=== PATIENT | male | born 1975 | race Hispanic/Latino ===

== ENCOUNTER 2016-11-18 16:07 | Emergency (ER) | payer OTHER ==
[2016-11-18 16:13] VITALS: RESP 20; TEMP 98.8; O2SAT 98
--- NOTE | 2016-11-18 16:59 | ED PDOC ---
HPI: Wound Care - HPI Time Seen by Provider: 11/18/16 16:18 Chief Complaint (Nursing): Abnormal Skin Integrity Chief Complaint (Provider): Abnormal Skin Integrity History Per: Patient Exam Limitations: no limitations Onset/Duration Of Symptoms: Days (x2) Additional Complaint(s): Rajan Trotter, 41 year old male presents to the ED after popping a pimple to his left axilla 2 days prior to arrival. After popping the pimple, the patient states he immediately felt draining and swelling inferior to the lesion and then subsequently developed swelling and pain in the left axilla. He reports pain with range of motion due to his lesion. He denies fever, chills, nausea, vomiting, any previous similar injury, or shaving to the area. PMD: Luis Christianson MD Past Medical History Reviewed: Historical Data, Nursing Documentation, Vital Signs Vital Signs: Last Vital Signs Temp 98.8 F 11/18/16 16:10 Pulse 123 H 11/18/16 16:10 Resp 20 11/18/16 16:10 BP 155/88 H 11/18/16 16:10 Pulse Ox 98 11/18/16 16:10 - Medical History PMH: No Chronic Diseases - Family History Family History: States: Unknown Family Hx - Social History Current smoker - smoking cessation education provided: Yes Alcohol: None Drugs: Opiates - Home Medications Home Medications: Ambulatory Orders Medication Instructions Recorded Clindamycin [Cleocin] 300 mg PO TID #30 cap 11/18/16 Sulfamethoxazole/Trimethoprim 1 tab PO BID #14 tab 11/18/16 [Bactrim DS 800 mg-160 mg] - Allergies Allergies/Adverse Reactions: Allergies Allergy/AdvReac Type Severity Reaction Status Date / Time No Known Allergies Allergy Verified 11/18/16 16:10 Review of Systems ROS Statement: Except As Marked, All Systems Reviewed And Found Negative Constitutional: Negative for: Fever, Chills Gastrointestinal: Negative for: Nausea, Vomiting Skin: Positive for: Lesions (to left axilla ), Other (swelling and pain to lesion on left axilla ) Physical Exam - Reviewed Nursing Documentation Reviewed: Yes Vital Signs Reviewed: Yes - Physical Exam Appears: Positive for: Well, Non-toxic, No Acute Distress Head Exam: Positive for: ATRAUMATIC, NORMAL INSPECTION, NORMOCEPHALIC Skin: Positive for: Warm (mild warmth noted to lesions; 2 lesions noted, round; 1 lesion is 1 cm and 2nd lesion is 4 x 2 inches deep; indurated; no fluctuance noted; no active drainage). Negative for: Normal Color (streaking that extends to the posterior aspect of bicep and around axilla extending to pectoral area) Extremity: Positive for: Other Lymphatic: Positive for: Other (lymph node swelling noted; surrounded; deep lymph nodes nonpalpable) Neurologic/Psych: Positive for: Alert, Oriented - ECG O2 Sat by Pulse Oximetry: 98 (RA) Pulse Ox Interpretation: Normal Medical Decision Making Medical Decision Making: Impression: 2 lesions Plan: * Lesions are not able to be drained at this time due to increased induration and depth of lesions. Patient will require warm compress and antibiotics to treat lesions. Discussed with patient to follow-up in 3 days for further evaluation. Pt advised to visit the emergency room if fever or chills occur following antibiotic treatment. Patient agreed to medication and treatment plan. Scribe Attestation: Documented by Ellie Madsen, acting as a scribe for Rowan Rosales PA-C. Provider Scribe Attestation: All medical record entries made by the Scribe were at my direction and personally dictated by me. I have reviewed the chart and agree that the record accurately reflects my personal performance of the history, physical exam, medical decision making, and the department course for this patient. I have also personally directed, reviewed, and agree with the discharge instructions and disposition. Disposition - Clinical Impression Clinical Impression: Abscess, Cellulitis - Patient ED Disposition Is Patient to be Admitted: No Counseled Patient/Family Regarding: Diagnosis, Need For Followup, Rx Given - Disposition Disposition: Routine/Home Disposition Time: 14:10 Condition: STABLE Prescriptions: Clindamycin [Cleocin] 300 mg PO TID #30 cap Sulfamethoxazole/Trimethoprim [Bactrim DS 800 mg-160 mg] 1 tab PO BID #14 tab Instructions: Cellulitis (ED), Abscess (ED) Print Language: ITALIAN
[2016-11-18 17:12] VITALS: BP 133/78; PULSE 108
== END 2016-11-18 17:00 | disposition home or self-care (01) ==
LOC: H.ER 16:07
DX: L02.413 Cutaneous abscess of right upper limb (principal)